=== PATIENT | male | born 1990 | race Caucasian/White ===

== ENCOUNTER → 2020-04-25 | Outpatient (CLI) | payer BC, OTHER ==
[~2020-04-25] MED LIST: HYDACE5325 PO
[2020-04-27 21:07] LABS: HBSAG SCREEN Negative (Negative); HEP A AB, IGM Negative (Negative); HEP B CORE AB, IGM Negative (Negative); HEP C VIRUS AB <0.1 (0.0-0.9)
[2020-04-27 22:07] LABS: HIV SCREEN 4TH GENERATION WRFX Non Reactive (Non Reactive)
== END | disposition home or self-care (01) ==
LOC: LAB SHORT 18:19 → LAB 18:19
PROVIDERS: Emergency Medicine
DX: N34.1 Nonspecific urethritis (principal)
CPT/HCPCS: 80074; 86592; 87389

== ENCOUNTER → 2020-04-26 | Outpatient (CLI) | payer BC, OTHER | LOC: LAB 19:12 → LAB SHORT 19:12 | DX: N34.1 Nonspecific urethritis (principal) | CPT/HCPCS: 87086 ==